=== PATIENT | male | born 1965 | race Caucasian/White ===

== ENCOUNTER 2021-12-02 02:06 | Inpatient (IN) | payer SELFPAY ==
[~2021-12-02] VITALS: Ht 172.7 cm; Wt 72.6 kg
[2021-12-02] MEDS ORDERED: ONDANSETRON 4 MG/2 ML VIAL IV ONE (02:30)
[2021-12-02] MEDS ORDERED: PANTOPRAZOLE SODIUM IV 80 MG in IV DEXTROSE 5% 100 ML IV ONE (02:30)
[2021-12-02] MEDS ORDERED: IV NORMAL SALINE 1000 ML BAG IV ONE (02:30)
[2021-12-02] MEDS ORDERED: ONDANSETRON 4 MG/2 ML VIAL ONE ×2 (02:38→02:39)
[2021-12-02] MEDS ORDERED: PANTOPRAZOLE SODIUM 40 MG VIAL ONE ×6 (02:38→20:43)
[2021-12-02 02:44] LABS: *OCCULT BLOOD STOOL POSITIVE (NEGATIVE)
[2021-12-02 02:51] LABS: HEMATOCRIT 25.9 % (36.7-47.1); MEAN CORPUSCULAR HEMOGLOBIN 20.6 uug (23.8-33.4); MEAN CORPUSCULAR VOLUME 68.3 fL (73.0-96.2); PLATELET COUNT (AUTO) 83 K/uL (152-348)
[2021-12-02 02:58] LABS: CREATININE 0.7 mg/dL (0.6-1.3); POTASSIUM 4.2 mmol/L (3.5-5.1)
[2021-12-02 03:03] LABS: BILIRUBIN,DIRECT 0.6 mg/dL (0.0-0.2); BILIRUBIN,TOTAL 1.7 mg/dL (0.2-1.0); TOTAL PROTEIN, SERUM 6.7 g/dL (6.4-8.2)
[2021-12-02] MEDS ORDERED: PANTOPRAZOLE SODIUM IV 80 MG in IV DEXTROSE 5% 500 ML IV SCH (04:30)
[2021-12-02] MEDS ORDERED: ONDANSETRON 4 MG/2 ML VIAL IV PRN (04:30)
[2021-12-02] MEDS: THIAMINE HCL INJ 100 MG in IV DEXTROSE 5% 50 ML IV SCH (04:30)
[2021-12-02] MEDS ORDERED: REMEDY ESSENTIAL ZINC PASTE 113 GM TP PRN (04:30)
[2021-12-02] MEDS ORDERED: MAGNESIUM HYDROXIDE 30 ML LIQUID UDC PO PRN (04:30)
[2021-12-02] MEDS ORDERED: ACETAMINOPHEN 325 MG TABLET PO PRN (04:30)
[2021-12-02] MEDS ORDERED: FOLIC ACID 5 MG/ML VIAL IV ONE (05:20)
[2021-12-02] MEDS ORDERED: THIAMINE HCL 200 MG/2 ML VIAL ONE (06:13)
[2021-12-02] MEDS: FOLIC ACID 1 MG in IV DEXTROSE 5% 50 ML IV SCH (06:30)
[2021-12-02 07:22] LABS: MAGNESIUM 1.9 mg/dL (1.8-2.4); PHOSPHOROUS 3.3 mg/dL (2.5-4.9)
[2021-12-02 07:25] LABS: BILIRUBIN,TOTAL 1.3 mg/dL (0.2-1.0); CREATININE 0.8 mg/dL (0.6-1.3); POTASSIUM 4.2 mmol/L (3.5-5.1); TOTAL PROTEIN, SERUM 6.2 g/dL (6.4-8.2)
[2021-12-02 07:31] LABS: HEMATOCRIT 22.7 % (36.7-47.1); MEAN CORPUSCULAR HEMOGLOBIN 20.9 uug (23.8-33.4); MEAN CORPUSCULAR VOLUME 67.7 fL (73.0-96.2); PLATELET COUNT (AUTO) 77 K/uL (152-348)
[2021-12-02 07:39] LABS: THYROID STIMULATING HORMONE 0.26 mIU/mL (0.358-3.740)
--- NOTE | 2021-12-02 08:18 | NUR ---
called Epic to page manager transportation planning admitting MD to notify of critical low HGB of 7.0 waiting for a call back from MD.
--- NOTE | 2021-12-02 08:47 | NUR ---
paged mainframe applications developer admitting EPIC MD a second time, waiting for call back. would like to notify of critical lab HGB 7.0.
[2021-12-02] MEDS ORDERED: ASPIRIN 81 MG TAB.CHEW ONE (09:29)
[2021-12-02] MEDS ORDERED: DOCUSATE SODIUM 100 MG CAPSULE PO ONE (09:30)
[2021-12-02] MEDS ORDERED: LISINOPRIL 10 MG TABLET ONE (09:30)
--- NOTE | 2021-12-02 10:44 | NUR ---
1000 recieved call from lab that blood was ready. 1005 vs checked, WNL and documented on transfusion log. Transfusion start time is 1025. pt assessed for 15 minutes for reactions (1040), none observed and 15min VS WNL also, and documented on transfusion log. pt tolerating blood transfusion, will continue to monitor for adverse reactions.
[2021-12-02 11:40] LABS: LYMPHOCYTES % (MANUAL) 21 % (20-40); MONOCYTES % (MANUAL) 6 % (2-10); NEUTROPHILS % (MANUAL) 73 % (42-75)
--- NOTE | 2021-12-02 12:41 | NUR ---
blood transfusion completed at 1225, VS WNL, pt denies SOB, itching or other reactions. blood tubing sent to lab along with transfusion log. CBC entered for 1hr post infusion completion. will continue to monitor.
[2021-12-02] MEDS: PANTOPRAZOLE SODIUM 40 MG VIAL IV SCH ×2 (12:45→20:49)
[2021-12-02 13:49] LABS: HEMATOCRIT 23.7 % (36.7-47.1); MEAN CORPUSCULAR HEMOGLOBIN 21.9 uug (23.8-33.4); MEAN CORPUSCULAR VOLUME 69.5 fL (73.0-96.2); PLATELET COUNT (AUTO) 73 K/uL (152-348)
--- NOTE | 2021-12-02 14:31 | NUR ---
redraw CBC post infusion is 7.5, ELEMENTARY MATH TUTOR Glaser made aware- no new orders. pt is comfortable, resting in bed.
--- NOTE | 2021-12-02 19:45 | NUR ---
pt is aware he is admitted to m/s status with dx of gi bleed. informed him I do not know if there are any available beds at this time will keep him posted.
[2021-12-02] MEDS: IV NS 1000 ML 1,000 ML IV PRN (21:30)
[2021-12-03] MEDS: FOLIC ACID 1 MG in IV DEXTROSE 5% 50 ML IV SCH (05:31)
[2021-12-03] MEDS: THIAMINE HCL INJ 100 MG in IV DEXTROSE 5% 50 ML IV SCH (06:08)
[2021-12-03 08:20] LABS: HEMATOCRIT 21.9 % (36.7-47.1); MEAN CORPUSCULAR HEMOGLOBIN 21.9 uug (23.8-33.4); MEAN CORPUSCULAR VOLUME 69.9 fL (73.0-96.2); PLATELET COUNT (AUTO) 70 K/uL (152-348)
--- NOTE | 2021-12-03 08:30 | NUR ---
recieved critical from lab, notified registry nurse and charge nurseSuha paged , waiting for a page back. Addendum: 12/03/21 at 1047 by TATYANA critical lab HGB 6.9, endorsed to registry nurse NAVEEN Enriquez.
[2021-12-03 08:31] LABS: BILIRUBIN,TOTAL 1.5 mg/dL (0.2-1.0); CREATININE 0.8 mg/dL (0.6-1.3); TOTAL PROTEIN, SERUM 5.6 g/dL (6.4-8.2)
[2021-12-03] MEDS ORDERED: PANTOPRAZOLE SODIUM 40 MG VIAL ONE (09:26)
--- NOTE | 2021-12-03 09:30 | NUR ---
paged Dr. Schreiber x3, waiting on page back. we have been trying to get in contact with to notify him of critical HGB 6.9
[2021-12-03] MEDS: PANTOPRAZOLE SODIUM 40 MG VIAL IV SCH ×2 (09:43→20:17)
--- NOTE | 2021-12-03 10:48 | NUR ---
paged again, waiting for call back for orders in regards to pt's critical low HGB 6.9
[2021-12-03 11:12] LABS: EOSINOPHILS % (MANUAL) 2 % (0-8); LYMPHOCYTES % (MANUAL) 29 % (20-40); MONOCYTES % (MANUAL) 7 % (2-10); NEUTROPHILS % (MANUAL) 62 % (42-75)
--- NOTE | 2021-12-03 11:30 | NUR ---
SECURITY OFFICER SUPERVISOR Arissarachel Alberto was in ED, i notified her of pt's HGB 6.9 and she gave verbal orders for 1 Unit PRBC to infuse. i endorsed this information to registry nurse NAVEEN Enriquez. pt is in stable condition, is resting comfortably in bed.
--- NOTE | 2021-12-03 15:51 | NUR ---
pt was transfered to 3rd floor, rm 317 and accepting RN is Jamison. Zoe Registry nurse gave report to Jamison. pt in stable condition and has all belongings with him.
--- NOTE | 2021-12-03 16:00 | NUR ---
Received patient and report from Zoe HODGE from ER. Patient admitted to med-surg.
--- NOTE | 2021-12-03 18:34 | NUR ---
Patient arrived on unit alert and oriented. Patient made aware of reason for hospitalization. Patient compliant with care given during the shift. IV site on left hand patent and intact, running fluids of normal saline at 75 cc/hr. Bed left in lowest position with call light within reach. Comfort measures provided. Will endorse information to PM nurse.
--- NOTE | 2021-12-03 19:25 | NUR ---
Patient alert oriented, no sob no chest pain, no complain of pain, cont to monitor.
[2021-12-03 21:40] VITALS: BP 118/53
[2021-12-03 22:51] VITALS: BP 118/53
[2021-12-03 23:06] VITALS: BP 129/66
--- NOTE | 2021-12-03 23:10 | NUR ---
Patient alert oriented, preparing patient for blood transfusion, 2nd bag PRBC, cont to monitor.
[2021-12-03 23:15] VITALS: BP 114/63
[2021-12-03 23:45] VITALS: BP 116/63
--- NOTE | 2021-12-03 23:45 | NUR ---
Transfusing 1 unit PRBC tolerate well, no adverse reaction noted, alert oriented, cont to monitor.
[2021-12-04 00:30] VITALS: BP 99/38
[2021-12-04 01:29] VITALS: BP 91/41
--- NOTE | 2021-12-04 01:31 | NUR ---
transfused 1 unit PRBC tolerate well, no sob no chest pain, no congestion noted, patient asleep, but arousable, no complain of pain, cont to martir.
[2021-12-04 04:25] VITALS: BP 98/45
--- NOTE | 2021-12-04 06:19 | NUR ---
Patient slept most of the night no complain of pain, ambulate to toilet, cont to monitor.
[2021-12-04 06:56] LABS: HEMATOCRIT 24.3 % (36.7-47.1); MEAN CORPUSCULAR HEMOGLOBIN 23.1 uug (23.8-33.4); PLATELET COUNT (AUTO) 73 K/uL (152-348)
[2021-12-04 07:13] LABS: BILIRUBIN,TOTAL 1.9 mg/dL (0.2-1.0); CREATININE 0.8 mg/dL (0.6-1.3); POTASSIUM 3.7 mmol/L (3.5-5.1); TOTAL PROTEIN, SERUM 5.7 g/dL (6.4-8.2)
[2021-12-04] MEDS: IV NS 1000 ML 1,000 ML IV PRN (07:51)
[2021-12-04 08:00] LABS: EOSINOPHILS % (MANUAL) 1 % (0-8); LYMPHOCYTES % (MANUAL) 28 % (20-40); MONOCYTES % (MANUAL) 9 % (2-10); NEUTROPHILS % (MANUAL) 62 % (42-75)
[2021-12-04] MEDS: FOLIC ACID 1 MG TABLET PO SCH (08:36)
[2021-12-04] MEDS: PANTOPRAZOLE SODIUM 40 MG VIAL IV SCH ×2 (08:36→20:05)
[2021-12-04] MEDS: THIAMINE HCL 100 MG TABLET PO SCH (08:36)
--- NOTE | 2021-12-04 12:37 | NUR ---
Patient to have EGD performed tomorrow at 1100, 12/05/21. Consent obtained. Pre-op checklist added to interventions. Patient to be NPO at midnight. Will endorse information to PM nurse.
[2021-12-04 15:50] VITALS: BP 137/71
--- NOTE | 2021-12-04 18:39 | NUR ---
Patient tolerated care well throughout shift with no complaints or pain or discomfort. IV site patent and intact. Bed left in lowest position with call light within reach. Will endorse information to PM nurse.
[2021-12-04 20:53] VITALS: BP 122/73
--- NOTE | 2021-12-04 23:58 | NUR ---
Patient alert oriented, no sob no chest pain, no complain of pain, hand report to Maite.
[2021-12-05] VITALS (8 sets, daily range): BP systolic 111–142; BP diastolic 57–82
[2021-12-05 07:43] LABS: HEMATOCRIT 24.6 % (36.7-47.1); MEAN CORPUSCULAR HEMOGLOBIN 23.3 uug (23.8-33.4); MEAN CORPUSCULAR VOLUME 73.3 fL (73.0-96.2); PLATELET COUNT (AUTO) 79 K/uL (152-348)
[2021-12-05 07:57] LABS: BILIRUBIN,TOTAL 1.2 mg/dL (0.2-1.0); CREATININE 0.9 mg/dL (0.6-1.3); POTASSIUM 3.7 mmol/L (3.5-5.1); TOTAL PROTEIN, SERUM 5.9 g/dL (6.4-8.2)
[2021-12-05] MEDS: THIAMINE HCL 100 MG TABLET PO SCH (08:31)
[2021-12-05] MEDS: FOLIC ACID 1 MG TABLET PO SCH (08:31)
[2021-12-05] MEDS: PANTOPRAZOLE SODIUM 40 MG VIAL IV SCH ×2 (08:55→20:26)
--- NOTE | 2021-12-05 10:31 | NUR ---
Receive patient awake in bed. He is in supine position. A&Ox4, made eye contact and can make his needs known. Respiration unlabored. Normal air movement with no apparent distress. He is comfortable at this time. He denied pain when sn asked. Patient NPO, he left 1025am for EGD. Belongings take, kept in a safe lace until patient returns back. Will continue to monitor patient.
--- NOTE | 2021-12-05 12:14 | NUR ---
!2:14Pm Patient arrived from Surgery. Patient appears to be comfortable. No pain and no distress noted.
[2021-12-05] MEDS: IV NS 1000 ML 1,000 ML IV PRN (13:58)
[2021-12-05] MEDS ORDERED: LIDOCAINE-MPF 2% 5 ML VIAL IJ ONE (14:19)
[2021-12-05] MEDS ORDERED: PROPOFOL 200 MG/20 ML BOTTLE IV ONE (14:19)
--- NOTE | 2021-12-05 18:18 | NUR ---
patient was able to tolerate the clear liquid diet, so now patient has been upgraded to FULL LIQUID DIET. ORDER PLACED.
[2021-12-06] MEDS: IV NS 1000 ML 1,000 ML IV PRN (04:00)
[2021-12-06 04:31] VITALS: BP 111/45
[2021-12-06 07:41] LABS: HEMATOCRIT 25.3 % (36.7-47.1); MEAN CORPUSCULAR HEMOGLOBIN 23.4 uug (23.8-33.4); MEAN CORPUSCULAR VOLUME 73.3 fL (73.0-96.2); PLATELET COUNT (AUTO) 82 K/uL (152-348)
[2021-12-06 07:43] LABS: BILIRUBIN,TOTAL 1.3 mg/dL (0.2-1.0); CREATININE 0.8 mg/dL (0.6-1.3); POTASSIUM 3.4 mmol/L (3.5-5.1)
[2021-12-06] MEDS: FOLIC ACID 1 MG TABLET PO SCH (08:15)
[2021-12-06] MEDS: THIAMINE HCL 100 MG TABLET PO SCH (08:15)
[2021-12-06] MEDS: PANTOPRAZOLE SODIUM 40 MG VIAL IV SCH (08:21)
[2021-12-06 11:50] VITALS: BP 134/77
[2021-12-06] MEDS ORDERED: POTASSIUM CHLORIDE 20 MEQ TAB.PRT.SR PO ONE (12:00)
[2021-12-06] MEDS ORDERED: PANT40TA2 PO (13:14)
[2021-12-06] MEDS ORDERED: FOLI1TAB94 PO (13:14)
[2021-12-06] MEDS ORDERED: THIA100T13 PO (13:14)
--- NOTE | 2021-12-06 14:22 | NUR ---
dc orders received noted and carried out,dc heplock per Md orders.dc instruction and education given to the pt.pt said he will follow up with his pcp .pt left the facility via private car in stable condition
== END 2021-12-06 14:20 | disposition home or self-care (01) | DRG 300 ==
LOC: ER 02:06 → TRANSITION 09:21 → MEDSURG3 12-03 15:30
PROVIDERS: ADMIT Nurse Practitioner Family; ATTEND Nurse Practitioner Acute Care
PROC: 30233N1 Transfusion of Nonautologous Red Blood Cells into Peripheral Vein, Percutaneous Approach (ICD-10-PCS; principal; 2021-12-02)
PROC: 06L28CZ Occlusion of Gastric Vein with Extraluminal Device, Via Natural or Artificial Opening Endoscopic (ICD-10-PCS; 2021-12-05)
DX: I86.4 Gastric varices (principal); D62 Acute posthemorrhagic anemia; K76.6 Portal hypertension; K70.30 Alcoholic cirrhosis of liver without ascites; K31.89 Other diseases of stomach and duodenum; I95.1 Orthostatic hypotension; K21.9 Gastro-esophageal reflux disease without esophagitis; K70.10 Alcoholic hepatitis without ascites; Z87.11 Personal history of peptic ulcer disease; G90.8 Other disorders of autonomic nervous system; Z20.822 Contact with and (suspected) exposure to COVID-19
CPT/HCPCS: 36415; 70030-TC; 71045; 76705; 83550; 83690; 83735; 84100; 84443; 85025; 85730; 86850; 86900; 86901; 86920; 93005; 93307; A4649; A4663; C9113; G0378; J2405; J3411; J3490; J7040; P9016